=== PATIENT | female | born 1960 | race Caucasian/White ===

== ENCOUNTER 2016-09-28 20:21 | Emergency (ER) | payer BC ==
[2016-09-28 20:49] VITALS: BP 122/92
[2016-09-28] MEDS ORDERED: Lidocaine/EPINEPHrine/Tetracaine Soln 5 ML Each TOP ONE (21:14)
[2016-09-28] MEDS ORDERED: Bacitracin Oint 1 GM U/D Packet TOP ONE (22:10)
[2016-09-28] MEDS ORDERED: Bacitracin Oint 1 GM U/D Packet ONE (22:11)
--- NOTE | 2016-09-28 22:12 | EDM.PDOC ---
ED HPI Skin/Rash - General Chief Complaint: Laceration Stated Complaint: CUT THUMB Time Seen by Provider: 09/28/16 21:00 Source: Reports: Patient History Limitations: Reports: No limitations - History of Present Illness INITIAL COMMENTS - FREE TEXT/NARRATIVE: And left thumb laceration: This is a 56-year-old female presents emergency room with her sister for laceration repair. [place] , she was cutting a vegetable with a knife, which slipped and caught her left thumb. 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 left ooectomy Endocrine/Metabolic History: Reports: Hypothyroidism Social & Family History - Tobacco Use Smoking Status *Q: Never Smoker - Caffeine Use Caffeine Use: Reports: Coffee - Recreational Drug Use Recreational Drug Use: No - Living Situation & Occupation Living situation: Reports: (works in [employer], lives with in [facility].) Occupation: employed ED ROS GENERAL - Review of Systems Review Of Systems: ROS reveals no pertinent complaints other than HPI. Constitutional: Reports: no symptoms Respiratory: Reports: No Symptoms Endocrine: Reports: no symptoms GI/Abdominal: Reports: No symptoms : Reports: no symptoms Musculoskeletal: Reports: no symptoms Skin: Reports: other (Laceration left thumb) Neurological: Reports: No Symptoms Hematologic/Lymphatic: Reports: no symptoms Immunologic: Reports: no symptoms ED EXAM, SKIN/RASH Exam: See Below Exam Limited By: No limitations General Appearance: alert, WD/WN, no apparent distress Respiratory/Chest: no respiratory distress Extremities: normal range of motion, normal capillary refill, other (Left thumb with laceration) Neurological: alert, normal cognition Psychiatric: normal affect, normal mood Skin: Warm, Dry, Wound/incision (2 cm laceration the left thumb) Location, Skin: other (Left thumb) Characteristics: linear (Laceration) Associated features: tenderness ( Protestant and goes to) ED SKIN PROCEDURES - Laceration/Wound Repair Left Posterior Distal Finger Lac/wound length in cm: 2 Appearance: subcutaneous Distal NVT: neuro & vascular intact, no tendon injury Anesthetic type: local Local anesthesia - Lidocaine (Xylocaine): 1% plain Local anesthetic volume: 2cc Skin prep: chlorhexidine (hibiciens), saline Exploration/Debridement/Repair: explored to base, no foreign material found Closed with: sutures Suture size: 4-0 # of sutures: 6 Suture type: prolene Sterile dressing applied: nurse Tetanus status addressed: Yes Complications: No Course - Vital Signs Last Recorded V/S: Last Vital Signs Temp 37 C 09/28/16 20:51 Pulse 71 09/28/16 20:51 Resp 16 09/28/16 20:51 BP 122/92 H 09/28/16 20:51 Pulse Ox 97 09/28/16 20:51 - Orders/Labs/Meds Meds: Medications Discontinued Medications Generic Name Dose Route Start Last Admin Trade Name Blair PRPalak Reason Stop Dose Admin Bacitracin 1 dose 09/28/16 22:10 09/28/16 22:12 Bacitracin Oint 1 Gm TOP 09/28/16 22:11 1 dose ONETIME ONE Administration Bacitracin Confirm 09/28/16 22:11 Bacitracin Oint 1 Gm Administered 09/28/16 22:12 Dose 1 dose .ROUTE .STK-MED ONE Lidocaine HCl 5 ml 09/28/16 21:15 09/28/16 21:31 Xylocaine-Mpf 1% INJECT 09/28/16 21:16 5 ml ONETIME ONE Administration Lidocaine/Tetracaine 5 ml 09/28/16 21:14 09/28/16 21:31 Let Soln TOP 09/28/16 21:15 5 ml ONETIME ONE Administration - Re-Assessments/Exams Free Text/Narrative Re-Assessment/Exam: Laceration repair Medications prescribed for discharge discharge to home Departure - Departure Time of Disposition: 22:24 Disposition: Home, Self-Care 01 Condition: good Clinical Impression: Broken skin, Thumb laceration Instructions: Laceration Care, Adult, [id number] Referrals: PCP,None [Primary Care Provider] - Forms: ED Department Discharge Care Plan Goals: Left thumb laceration -2 cm closed with 6 sutures 4-0 Prolene -advised to keep covered x3 days apply bacitracin ointment 2 times per day x3 days -sutures out in 7-10 days -return to clinic or ER if develops any increased redness, pain, discharge or not improved. Bandage applied in emergency room Prescription Instylmeds written for Tylenol with Codeine one every 4-6 hours when necessary pain #15 may use [id number] Motrin 400 one to 2 caps every 8 when necessary pain - Problem List & Annotations (1) Thumb laceration SNOMED Code(s): 458616264 Code(s): S61.019A - LACERATION W/O FOREIGN BODY OF THMB W/O DAMAGE TO NAIL, INIT Status: Acute Priority: High Qualifiers: Encounter type: initial encounter Laterality: left Qualified Code(s): S61.012A - Laceration without foreign body of left thumb without damage to nail , initial encounter - Problem List Review Problem List Initiated/Reviewed/Updated: Yes - Assessment/Plan Plan: Left thumb laceration -2 cm closed with 6 sutures 4-0 Prolene -advised to keep covered x3 days apply bacitracin ointment 2 times per day x3 days -sutures out in 7-10 days -return to clinic or ER if develops any increased redness, pain, discharge or not improved. Bandage applied in emergency room Prescription Instylmeds written for Tylenol with Codeine one every 4-6 hours when necessary pain #15 may use [id number] Motrin 400 one to 2 caps every 8 when necessary pain
== END 2016-09-28 22:24 | disposition home or self-care (01) ==
LOC: JP.ED 20:21
DX: S61.012A Laceration without foreign body of left thumb without damage to nail, initial encounter (principal); E03.9 Hypothyroidism, unspecified; Z79.899 Other long term (current) drug therapy; Z88.0 Allergy status to penicillin; W26.0XXA Contact with knife, initial encounter; Y92.59 Other trade areas as the place of occurrence of the external cause
CPT/HCPCS: 12001; 99283; A9270